=== PATIENT | female | born 1935 | race Caucasian/White ===

== ENCOUNTER 2018-01-11 12:51 | Emergency (ER) | payer BC, MEDICAID, MEDICARE, OTHER ==
[2018-01-11] MEDS ORDERED: NITROGLYCERIN 0.4 MG TAB SL ONE (13:08)
[2018-01-11] MEDS ORDERED: ASPIRIN 81 MG CHEWABLE CTB ONE (13:09)
[2018-01-11] MEDS ORDERED: SODIUM CHLORIDE 0.9% 1000ML 1,000 ML IV ONE (13:11)
[2018-01-11] MEDS: NITROGLYCERIN 0.4 MG TAB SL PRN ×2 (13:15→13:51)
[2018-01-11 13:16] LABS: BASOPHILS % (AUTO) 1 % (0-3); EOSINOPHILS % (AUTO) 2 % (0-9); HEMATOCRIT 44 % (35-47); HEMOGLOBIN 13.7 gm/dl (12.0-15.5); LYMPHOCYTES % (AUTO) 37.7 % (10-50); MEAN CORPUSCULAR HEMOGLOBIN 27.9 pg (27.0-32.0); MEAN CORPUSCULAR VOLUME 90 fL (81-99); NEUTROPHILS % (AUTO) 50.5 % (37-80)
[2018-01-11] MEDS ORDERED: ALUMINUM/MAGNESIUM 30 ML SUS PO ONE (13:17)
[2018-01-11] MEDS ORDERED: LIDOCAINE HCL 2% (VISCOUS) 20 ML SOL MT ONE (13:17)
[2018-01-11] MEDS ORDERED: ALUMINUM/MAGNESIUM 30 ML SUS ONE (13:18)
[2018-01-11] MEDS ORDERED: LIDOCAINE HCL 2% (VISCOUS) 20 ML SOL ONE (13:18)
[2018-01-11 13:23] LABS: INR 0.97 (0.86-1.12)
[2018-01-11 13:32] LABS: ALBUMIN 3.7 gm/dl (3.4-5.0); BILIRUBIN,TOTAL 0.3 mg/dl (0.2-1.0); CARBON DIOXIDE 30.1 mEq/L (21-32); CREATININE 0.96 mg/dl (0.60-1.00); POTASSIUM 4.1 mMol/L (3.5-5.1); TOTAL PROTEIN 8.1 gm/dl (6.4-8.2)
[2018-01-11 13:33] LABS: TROP I 1.837 ng/ml (0.000-0.056)
[2018-01-11] MEDS ORDERED: MORPHINE SULFATE 10 MG/ML SOL IV ONE ×2 (13:41)
[2018-01-11] MEDS ORDERED: MORPHINE SULFATE 10 MG/ML SOL ONE (13:42)
[2018-01-11] MEDS ORDERED: NITROGLYCERIN 5 MG/ML 50 MG in DEXTROSE 250 ML 250 ML IV PRN (13:53)
[2018-01-11] MEDS ORDERED: HEPARIN SODIUM 5000 U/ML SOL IV ONE (14:17)
[2018-01-11] MEDS ORDERED: HEPARIN PREMIX 25,000 U/250 ML SOL IV PRN (14:18)
[2018-01-11] MEDS ORDERED: HEPARIN SODIUM 5000 U/ML SOL ONE ×2 (14:19→14:22)
[2018-01-11 14:45] VITALS: RESP 20; TEMP 97.6
[2018-01-11 14:48] VITALS: BP 163/84; PULSE 96; O2SAT 91
[2018-01-12] MEDS ORDERED: ASPIRIN EC 81 MG PO SCH (09:00)
== END 2018-01-11 14:27 | disposition short-term general hospital (02) | DRG 282 ==
LOC: ED 12:51
DX: I21.4 Non-ST elevation (NSTEMI) myocardial infarction (principal); R06.02 Shortness of breath
CPT/HCPCS: 36415; 71045; 80053; 83880; 84484; 85025; 85610; 93005; 96365; 96374; 96375; 99070; 99291; J1644; J2270; A9270-GY; J3490

== ENCOUNTER 2018-07-24 17:51 | Inpatient (IN) | payer OTHER | END 2018-07-25 01:25 | disposition short-term general hospital (02) | LOC: ED 17:51 → ACUTE CARE 21:41 ==

== ENCOUNTER 2018-08-18 04:00 | Emergency (ER) | payer OTHER ==
[2018-08-18] MEDS ORDERED: SODIUM CHLORIDE 0.9% FLUSH 10 ML SOL IV PRN (04:10)
[2018-08-18] MEDS ORDERED: DIPHENHYDRAMINE 50 MG/ML SOL IV ONE (04:38)
[2018-08-18] MEDS ORDERED: MORPHINE SULFATE 10 MG/ML SOL IV ONE (04:38)
[2018-08-18] MEDS ORDERED: ONDANSETRON HCL 4 MG/2 ML SOL IV ONE (04:39)
[2018-08-18 04:43] LABS: BASOPHILS % (AUTO) 1 % (0-3); EOSINOPHILS % (AUTO) 4 % (0-9); HEMATOCRIT 35 % (35-47); HEMOGLOBIN 11.2 gm/dl (12.0-15.5); LYMPHOCYTES % (AUTO) 32.4 % (10-50); MEAN CORPUSCULAR HEMOGLOBIN 27.8 pg (27.0-32.0); MEAN CORPUSCULAR HGB CONC 31.8 gm/dl (32.0-36.0); MEAN CORPUSCULAR VOLUME 87 fL (81-99); MONOCYTES % (AUTO) 9.5 % (0-12); NEUTROPHILS % (AUTO) 52.5 % (37-80)
[2018-08-18 04:51] LABS: BILIRUBIN,TOTAL 0.5 mg/dl (0.2-1.0); CALCIUM 8.8 mg/dl (8.5-10.1); CARBON DIOXIDE 34.4 mEq/L (21-32); CREATININE 0.86 mg/dl (0.60-1.00); POTASSIUM 4.2 mMol/L (3.5-5.1); TOTAL PROTEIN 6.9 gm/dl (6.4-8.2)
[2018-08-18] MEDS ORDERED: MORPHINE SULFATE 10 MG/ML SOL ONE (05:04)
[2018-08-18] MEDS ORDERED: ONDANSETRON HCL 4 MG/2 ML SOL ONE (05:05)
[2018-08-18 05:06] LABS: APPEARANCE,URINE Clear; BILIRUBIN,URINE NEGATIVE (NEGATIVE); COLOR,URINE Yellow; GLUCOSE, URINE (UA) NEGATIVE (NEGATIVE); KETONES,URINE NEGATIVE (NEGATIVE); LEUKOCYTE ESTERASE ,URINE NEGATIVE (NEGATIVE); NITRATE,URINE NEGATIVE (NEGATIVE); OCCULT BLOOD,URINE NEGATIVE (NEG-TRACE); UROBILINOGEN,URINE 0.2 (0.2-1.0 EU)
[2018-08-18 05:10] LABS: BACTERIA TRACE (< 1+); CRYSTALS NEGATIVE (0-3 AVE/HPF); EPITHELIAL CELLS NEGATIVE (SQUAMOUS); RBC,URINE NEG (0-3AV/HPF); WBC,URINE 0-1 (0-5AV/HPF)
[2018-08-18 05:39] VITALS: RESP 16; TEMP 97.8
[2018-08-18 06:02] VITALS: O2SAT 96
[2018-08-18 06:19] VITALS: BP 122/54; PULSE 70
== END 2018-08-18 06:26 | disposition short-term general hospital (02) | DRG 536 ==
LOC: ED 04:00
DX: S72.002A Fracture of unspecified part of neck of left femur, initial encounter for closed fracture (principal); W19.XXXA Unspecified fall, initial encounter
CPT/HCPCS: 73501; 80053; 81001; 85025; 96374; 96375; 99283; 99285; J2270; J2405

== ENCOUNTER 2018-08-27 15:20 | Inpatient (IN) | payer OTHER ==
[2018-08-27] MEDS ORDERED: MECLIZINE HYDROCHLORIDE 12.5 MG TAB PO PRN (20:08)
[2018-08-27] MEDS ORDERED: ALBUTEROL/IPRATROPIUM 1 VIAL SOL NEB PRN (20:08)
[2018-08-27] MEDS ORDERED: FLUTICASONE PROPIONATE NAS PRN (20:08)
[2018-08-27] MEDS: CARVEDILOL 3.125 MG TAB PO SCH (20:55)
[2018-08-27] MEDS ORDERED: SENNOSIDES A AND B 8.6 MG TAB PO PRN (20:56)
[2018-08-27] MEDS: CETIRIZINE HYDROCHLORIDE 10 MG TAB PO SCH (21:00)
[2018-08-27] MEDS: OXYCODONE HYDROCHLORIDE 5 MG TAB PO PRN (21:00)
[2018-08-27] MEDS: CITALOPRAM 20 MG TAB PO SCH (21:00)
[2018-08-27] MEDS ORDERED: ATORVASTATIN CALCIUM 80 MG TAB PO SCH (21:00)
[2018-08-27] MEDS: ACETAMINOPHEN 500 MG 500 MG TAB PO PRN (23:45)
[2018-08-28] MEDS: PANTOPRAZOLE SODIUM 40 MG ECT PO SCH (06:41)
[2018-08-28] MEDS ORDERED: OMEPRAZOLE 40 MG ECC PO SCH (07:00)
[2018-08-28] MEDS ORDERED: PANTOPRAZOLE SODIUM 40 MG ECT PO SCH (07:00)
[2018-08-28] MEDS: OXYCODONE HYDROCHLORIDE 5 MG TAB PO PRN ×3 (07:45→20:34)
[2018-08-28] MEDS: ASPIRIN EC 81 MG PO SCH (09:50)
[2018-08-28] MEDS: CARVEDILOL 3.125 MG TAB PO SCH ×3 (09:50→18:17)
[2018-08-28] MEDS: CLOPIDOGREL 75 MG TAB PO SCH (09:50)
[2018-08-28] MEDS: MULTIVITAMIN2 1 EA TAB PO SCH (09:50)
[2018-08-28] MEDS: DOCUSATE SODIUM 100 MG SGL PO PRN (09:50)
[2018-08-28] MEDS: ENOXAPARIN 40 MG SOL SC SCH (09:57)
[2018-08-28] MEDS: ACETAMINOPHEN 500 MG 500 MG TAB PO PRN ×2 (12:02→22:49)
[2018-08-28] MEDS: CITALOPRAM 20 MG TAB PO SCH (20:35)
[2018-08-28] MEDS: ATORVASTATIN 10 MG TAB PO SCH (20:37)
[2018-08-28] MEDS: CETIRIZINE HYDROCHLORIDE 10 MG TAB PO SCH (20:38)
[2018-08-29] MEDS: PANTOPRAZOLE SODIUM 40 MG ECT PO SCH (06:34)
[2018-08-29] MEDS: ASPIRIN EC 81 MG PO SCH (09:12)
[2018-08-29] MEDS: CARVEDILOL 3.125 MG TAB PO SCH ×2 (09:13→18:09)
[2018-08-29] MEDS: CLOPIDOGREL 75 MG TAB PO SCH (09:13)
[2018-08-29] MEDS: ENOXAPARIN 40 MG SOL SC SCH (09:15)
[2018-08-29] MEDS: MULTIVITAMIN2 1 EA TAB PO SCH (09:15)
[2018-08-29] MEDS: ACETAMINOPHEN 500 MG 500 MG TAB PO PRN ×2 (13:10→23:22)
[2018-08-29] MEDS: ATORVASTATIN 10 MG TAB PO SCH (21:08)
[2018-08-29] MEDS: CITALOPRAM 20 MG TAB PO SCH (21:08)
[2018-08-29] MEDS: OXYCODONE HYDROCHLORIDE 5 MG TAB PO PRN (21:10)
[2018-08-29] MEDS: CETIRIZINE HYDROCHLORIDE 10 MG TAB PO SCH (21:10)
[2018-08-30] MEDS: PANTOPRAZOLE SODIUM 40 MG ECT PO SCH (06:18)
[2018-08-30] MEDS: ACETAMINOPHEN 500 MG 500 MG TAB PO PRN ×2 (06:18→13:43)
[2018-08-30] MEDS: ENOXAPARIN 40 MG SOL SC SCH (08:35)
[2018-08-30] MEDS: MULTIVITAMIN2 1 EA TAB PO SCH (08:36)
[2018-08-30] MEDS: CARVEDILOL 3.125 MG TAB PO SCH ×2 (08:36→18:34)
[2018-08-30] MEDS: CLOPIDOGREL 75 MG TAB PO SCH (08:36)
[2018-08-30] MEDS: ASPIRIN EC 81 MG PO SCH (08:36)
[2018-08-30] MEDS: OXYCODONE HYDROCHLORIDE 5 MG TAB PO PRN (21:10)
[2018-08-30] MEDS: CITALOPRAM 20 MG TAB PO SCH (21:10)
[2018-08-30] MEDS: ATORVASTATIN 10 MG TAB PO SCH (21:11)
[2018-08-30] MEDS: CETIRIZINE HYDROCHLORIDE 10 MG TAB PO SCH (21:11)
[2018-08-31] MEDS: ACETAMINOPHEN 500 MG 500 MG TAB PO PRN ×3 (03:40→18:28)
[2018-08-31] MEDS: PANTOPRAZOLE SODIUM 40 MG ECT PO SCH (06:43)
[2018-08-31] MEDS: CLOPIDOGREL 75 MG TAB PO SCH (08:19)
[2018-08-31] MEDS: ASPIRIN EC 81 MG PO SCH (08:19)
[2018-08-31] MEDS: CARVEDILOL 3.125 MG TAB PO SCH ×2 (08:19→18:28)
[2018-08-31] MEDS: MULTIVITAMIN2 1 EA TAB PO SCH (08:19)
[2018-08-31] MEDS: ENOXAPARIN 40 MG SOL SC SCH (08:24)
[2018-08-31] MEDS: OXYCODONE HYDROCHLORIDE 5 MG TAB PO PRN ×3 (08:24→21:19)
[2018-08-31] MEDS: ATORVASTATIN 10 MG TAB PO SCH (21:20)
[2018-08-31] MEDS: CITALOPRAM 20 MG TAB PO SCH (21:20)
[2018-08-31] MEDS: CETIRIZINE HYDROCHLORIDE 10 MG TAB PO SCH (21:20)
[2018-09-01] MEDS: PANTOPRAZOLE SODIUM 40 MG ECT PO SCH (06:04)
[2018-09-01] MEDS: ASPIRIN EC 81 MG PO SCH (08:07)
[2018-09-01] MEDS: MULTIVITAMIN2 1 EA TAB PO SCH (08:08)
[2018-09-01] MEDS: CLOPIDOGREL 75 MG TAB PO SCH (08:08)
[2018-09-01] MEDS: ENOXAPARIN 40 MG SOL SC SCH (08:08)
[2018-09-01] MEDS: ACETAMINOPHEN 500 MG 500 MG TAB PO PRN ×2 (08:08→16:01)
[2018-09-01] MEDS: CARVEDILOL 3.125 MG TAB PO SCH ×2 (08:08→17:32)
[2018-09-01] MEDS: DOCUSATE SODIUM 100 MG SGL PO PRN (20:16)
[2018-09-01] MEDS: CITALOPRAM 20 MG TAB PO SCH (20:17)
[2018-09-01] MEDS: CETIRIZINE HYDROCHLORIDE 10 MG TAB PO SCH (20:17)
[2018-09-01] MEDS: ATORVASTATIN 10 MG TAB PO SCH (20:18)
[2018-09-01] MEDS: OXYCODONE HYDROCHLORIDE 5 MG TAB PO PRN (22:02)
[2018-09-02] MEDS: ACETAMINOPHEN 500 MG 500 MG TAB PO PRN ×2 (05:11→16:23)
[2018-09-02] MEDS: PANTOPRAZOLE SODIUM 40 MG ECT PO SCH (06:26)
[2018-09-02 08:14] VITALS: RESP 16
[2018-09-02] MEDS: MULTIVITAMIN2 1 EA TAB PO SCH (08:24)
[2018-09-02] MEDS: CLOPIDOGREL 75 MG TAB PO SCH (08:24)
[2018-09-02] MEDS: ASPIRIN EC 81 MG PO SCH (08:24)
[2018-09-02] MEDS: CARVEDILOL 3.125 MG TAB PO SCH ×2 (08:24→19:29)
[2018-09-02] MEDS: ENOXAPARIN 40 MG SOL SC SCH (09:54)
[2018-09-02] MEDS: CITALOPRAM 20 MG TAB PO SCH (21:32)
[2018-09-02] MEDS: OXYCODONE HYDROCHLORIDE 5 MG TAB PO PRN (21:32)
[2018-09-02] MEDS: ATORVASTATIN 10 MG TAB PO SCH (21:32)
[2018-09-02] MEDS: CETIRIZINE HYDROCHLORIDE 10 MG TAB PO SCH (21:34)
[2018-09-02] MEDS: CLOTRIMAZOLE 1% CREAM TOP SCH (21:43)
[2018-09-03] MEDS: ACETAMINOPHEN 500 MG 500 MG TAB PO PRN (04:06)
[2018-09-03] MEDS: PANTOPRAZOLE SODIUM 40 MG ECT PO SCH (06:25)
[2018-09-03 08:29] VITALS: BP 135/64; PULSE 67; TEMP 98.2; O2SAT 95
[2018-09-03] MEDS: MULTIVITAMIN2 1 EA TAB PO SCH (09:25)
[2018-09-03] MEDS: ASPIRIN EC 81 MG PO SCH (09:25)
[2018-09-03] MEDS: CLOTRIMAZOLE 1% CREAM TOP SCH (09:25)
[2018-09-03] MEDS: CLOPIDOGREL 75 MG TAB PO SCH (09:26)
[2018-09-03] MEDS: CARVEDILOL 3.125 MG TAB PO SCH (09:26)
[2018-09-03] MEDS: ENOXAPARIN 40 MG SOL SC SCH (09:26)
== END 2018-09-03 10:05 | DRG 561 ==
LOC: ACUTE CARE 18:43
PROVIDERS: ADMIT Family Medicine; ATTEND Family Medicine
PROC: F02Z0FZ Bathing/Showering Assessment using Assistive, Adaptive, Supportive or Protective Equipment (ICD-10-PCS; principal; 2018-08-28)
PROC: F02Z3ZZ Grooming/Personal Hygiene Assessment (ICD-10-PCS; 2018-08-28)
PROC: F01L0FZ Muscle Performance Assessment of Musculoskeletal System - Lower Back / Lower Extremity using Assistive, Adaptive, Supportive or Protective Equipment (ICD-10-PCS; 2018-08-28)
PROC: F01L5YZ Range of Motion and Joint Integrity Assessment of Musculoskeletal System - Lower Back / Lower Extremity using Other Equipment (ICD-10-PCS; 2018-08-28)
DX: S72.002D Fracture of unspecified part of neck of left femur, subsequent encounter for closed fracture with routine healing (principal); Z98.890 Other specified postprocedural states; I10 Essential (primary) hypertension
CPT/HCPCS: 94150; J1650; A6219; A6232; A9270-GY